=== PATIENT | male | born 1955 | race Caucasian/White ===

== ENCOUNTER → 2018-07-27 | Outpatient (CLI) | payer OTHER ==
[~2018-07-27] MED LIST: ALBU1.25 INH; ALLO300T PO; ASPI-496 PO; ATOR10TA9 PO; CHOL10002 PO; COLC1TAB PO; FEXO180T72 PO; FLUT16SP2 NS; FLUT1DIS3 INH; IBUP100T9; IBUP200T49 PO; INDO50CA5 PO; MONT10TA9 PO; MULT-6 PO; QUER1POW
== END | disposition home or self-care (01) ==
LOC: CFH 06:50
PROVIDERS: ATTEND Internal Medicine Cardiovascular Disease
DX: I35.8 Other nonrheumatic aortic valve disorders (principal); I25.10 Atherosclerotic heart disease of native coronary artery without angina pectoris; E78.5 Hyperlipidemia, unspecified
CPT/HCPCS: 78452; 93017; 93306; A9502

== ENCOUNTER 2019-03-24 10:21 | Emergency (ER) | payer OTHER ==
[~2019-03-24] VITALS: Ht 182.9 cm; Wt 100.0 kg
[2019-03-24 10:23] VITALS: BP 150/101
== END 2019-03-24 12:28 | disposition home or self-care (01) ==
LOC: ED 10:59
DX: S29.012A Strain of muscle and tendon of back wall of thorax, initial encounter (principal); S20.211A Contusion of right front wall of thorax, initial encounter; J45.909 Unspecified asthma, uncomplicated; V49.49XA Driver injured in collision with other motor vehicles in traffic accident, initial encounter; Y93.89 Activity, other specified; Y92.410 Unspecified street and highway as the place of occurrence of the external cause; Y99.8 Other external cause status
CPT/HCPCS: 71120; 72072; 93005; 99283

== ENCOUNTER 2019-11-28 13:46 | Emergency (ER) | payer MEDICARE, OTHER ==
[~2019-11-28] VITALS: Ht 185.4 cm; Wt 95.9 kg
[~2019-11-28 13:46] MED LIST changes: +INDO50CA15 PO; -INDO50CA5 PO
[2019-11-28] MEDS ORDERED: DIPH,PERTUSS(ACELL),TET VAC/PF 0.5 ML IM-VACC ONE ×2 (14:30→15:08)
[2019-11-28] MEDS ORDERED: CEPHALEXIN 500 MG CAPSULE PO ONE (14:30)
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
[2019-11-28 14:32] LABS: BASOPHILS # (AUTO) 0.03 x10^3/uL (0-0.1); BASOPHILS % (AUTO) 0 % (0-1); EOSINOPHILS # (AUTO) 0.07 x10^3/uL (0-0.4); EOSINOPHILS % (AUTO) 1 % (1-7); LYMPHOCYTES % (AUTO) 13 % (22-44); MD NO; MEAN CORPUSCULAR HEMOGLOBIN 32.2 pg (27.5-34.5); MEAN CORPUSCULAR HGB CONC 33.5 g/dL (33.2-36.2); MEAN CORPUSCULAR VOLUME 96.1 fL (81-97); MEAN PLATELET VOLUME 6.4 fL (7.4-10.4); MONOCYTES % (AUTO) 5 % (2-9); NEUTROPHILS # (AUTO) 7.91 x10^3/uL (1.8-6.8); NEUTROPHILS % (AUTO) 81 % (42-75); PLATELET COUNT 425 x10^3/uL (130-400); RED BLOOD COUNT 3.86 x10^6/uL (4.38-5.82)
[2019-11-28] MEDS ORDERED: NEOSPORIN OINT. PKT 1 PACKET ONE (14:38)
[2019-11-28 14:44] LABS: ALBUMIN 3.6 g/dL (3.4-5.0); ANION GAP 6 mmol/L (5-15); CALCIUM 9.2 mg/dL (8.5-10.1); CHLORIDE 106 mmol/L (98-107)
[2019-11-28 14:48] LABS: ALANINE AMINOTRANSFERASE 139 U/L (12-78); ALKALINE PHOSPHATASE 81 U/L (45-117); BILIRUBIN,TOTAL 0.6 mg/dL (0.2-1.0); CREATININE 0.89 mg/dL (0.7-1.3); TOTAL PROTEIN 7.3 g/dL (6.4-8.2)
[2019-11-28 14:49] LABS: SALICYLATE LEVEL < 1.7 mg/dL (2.8-20.0)
[2019-11-28 14:50] LABS: CULTURE INDICATED? NO; MICROSCOPIC NOT IND
--- NOTE | 2019-11-28 14:50 | NUR ---
Called and requested hospital bed from housekeeping. Food tray provided to pt. Pt apprecaitive.
[2019-11-28 14:56] LABS: AMPHETAMINE SCREEN, URINE Negative (Negative); BARBITURATE SCREEN, URINE Negative (Negative); BENZODIAZEPINE SCREEN, URINE Negative (Negative); CANNABINOID SCREEN, URINE Negative (Negative); COCAINE SCREEN, URINE Negative (Negative); METHADONE SCREEN, URINE Negative (Negative); OPIATE SCREEN, URINE Negative (Negative)
[2019-11-28] MEDS ORDERED: CEPHALEXIN 500 MG CAPSULE ONE (15:08)
--- NOTE | 2019-11-28 15:18 | NUR ---
Provided pt medication per EMAR. Pt appreciative. No needs expressed at this time. Sitter near doorway in direct line of sight for observation.
--- NOTE | 2019-11-28 16:25 | NUR ---
THROUGHPUT: TAYO ([place]) FAXED PACKET TO [facility]
--- NOTE | 2019-11-28 16:27 | NUR ---
Pt provided hospital bed. Pt appreciative. Pt provided water per request. Pt requesting shower. Pt aware when appropriate staffing is available to take him to shower he will get a shower. Pt stated verbal understanding. No other needs requested.
--- NOTE | 2019-11-28 18:33 | NUR ---
LATE NOTE ENTRY FOR 1714: service worker offered to take pt to shower. Pt "changed his mind". Pt resting on hospital bed watching TV. No needs expressed at this time. Sitter in direct line of sight for observation.
--- NOTE | 2019-11-28 18:33 | NUR ---
Pt resting on hospital bed watching TV. No needs expressed at this time. Sitter in direct line of sight for observation.
--- NOTE | 2019-11-28 18:47 | NUR ---
Provided bedside report to RAFIQ Almeida. All questions answered. RAFIQ Almeida to assume care of pt at this time. No needs requested by pt at this time. Sitter remains within in line of sight from doorway.
--- NOTE | 2019-11-28 18:49 | NUR ---
Pt requesting more food. Ordered stat food tray from diet office.
--- NOTE | 2019-11-28 19:03 | NUR ---
Provided SI tray to pt. Pt apprecaitive. No other needs expressed.
--- NOTE | 2019-11-28 19:41 | NUR ---
pt resting quietly in room. pt denies current needs. sitter in place.
--- NOTE | 2019-11-29 01:00 | NUR ---
REPORT RECEIVED FROM ROSE. RE-ASSUMED CARE OF PT AT THIS TIME.
--- NOTE | 2019-11-29 02:13 | NUR ---
MEAL TRAY ORDERED
--- NOTE | 2019-11-29 04:25 | NUR ---
PT HAS BEEN INTERMITTENTLY WALKING AROUND THE ROOM AND SPEAKING TO HIMSELF. PT GIVEN CRACKERS PER REQUEST. SITTER REMAINS IN PLACE.
--- NOTE | 2019-11-29 04:40 | NUR ---
PT IN HALLWAY STATING "I'LL BE RIGHT BACK I'M GONNA GO GET COFFEE". PT REDIRECTED BACK INTO ROOM AND INFORMED BEVERAGES WILL BE PROVIDED WITH BREAKFAST. PT AGREEABLE.
--- NOTE | 2019-11-29 04:57 | NUR ---
PT GIVEN MULTIPLE CUPS OF WATER PER REQUEST.
--- NOTE | 2019-11-29 05:03 | NUR ---
NO CONTINUED ABX ORDERED FOR PTS WOUND. WOUND WAS VISUALIZED AND FOUND TO BE PURULENT. ON DUTY MD INFORMED. MEDS ORDERED. MD WILL ASSESS WOUND WHEN HE IS AVAILABLE.
[2019-11-29] MEDS ORDERED: CEPHALEXIN 500 MG CAPSULE ONE ×2 (05:05→12:03)
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
[2019-11-29] MEDS ORDERED: CEPHALEXIN 500 MG CAPSULE PO ONE (06:00)
[2019-11-29] MEDS ORDERED: CEPHALEXIN 500 MG CAPSULE PO SCH ×2 (06:00→12:15)
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
[2019-11-29] MEDS ORDERED: ZIPRASIDONE 20 MG INJ IM ONE ×2 (06:34→07:00)
--- NOTE | 2019-11-29 06:35 | NUR ---
PT IN ROOM SPEAKING IN A HIGH PITCHED VOICE, NON SENSICAL. UNCOOPERATIVE.
--- NOTE | 2019-11-29 06:44 | NUR ---
TECH AT BEDSIDE FOR WOUND CARE. PT CONTINUES TO SPEAK IN HIGH PITCHED NONSENSICAL TALK.
--- NOTE | 2019-11-29 06:48 | NUR ---
PT NOW IN 2 POINT RESTRAINTS.
--- NOTE | 2019-11-29 06:58 | NUR ---
RECEIVED REPORT FROM ARABELLA. PT UPRIGHT ON HOSPITAL BED CALMLY WATCHING TV, 2-PT RESTRAINTS IN PLACE, COOPERATIVE & RESPONDS APPROP TO STAFF, NAD, COMFORT MEASURES PROVIDED, PT REMAINS IN SAFE ENVIRONMENT, SITTER IN VIEW.
--- NOTE | 2019-11-29 07:40 | NUR ---
PT HITTING WALL WITH FREE HAND STATING "I WANT BREAKFAST." PT EASILY REDIRECTABLE & ASSURED BREAKFAST WAS ON THE WAY, BED ALSO MOVED FURTHER AWAY FROM THE WALL.
--- NOTE | 2019-11-29 08:00 | NUR ---
PT REMAINS UPRIGHT ON GURNEY AWAKE & COOPERATIVE, RESPONDS APPROP TO STAFF, VERBALIZED UNDERSTANDING OF CRITERIA OF RESTRAINT REMOVAL SO 2-PTS WERE DC'D, NAD, COMFORT MEASURES PROVIDED, PT REMAINS IN SAFE ENVIRONMENT, SITTER IN VIEW.
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
--- NOTE | 2019-11-29 08:15 | NUR ---
REPORT GIVEN TO EMILY
--- NOTE | 2019-11-29 08:30 | NUR ---
PT SITTING IN BED WITH EYES CLOSED. ARROUSES WHEN RN ENTERS ROOM. PT COOPERATIVE WITH RN OBTAINING VS AND ASSESSMENT. PT C/O SHEA. DENIES SI/HI AT THIS TIME. BREAKFAST TRAY PROVIDED AND SET UP, COFFEE PROVIDED REQUESTED. PLAN FOR SHOWER AFTER BREAKFAST DISCUSSED.
--- NOTE | 2019-11-29 10:12 | NUR ---
9025 - 0653 PT ATE 100% OF BREAKFAST. PT AMBULATED WITH SITTER TO SHOWER ROOM. PT COMPLETED SHOWER INDEPENDENTLY, RTD TO ROOM W/O INCIDENT. PTS BROTHERBRANDEN HERE TO VISIT WITH PT. SITTER AT DOORWAY.
--- NOTE | 2019-11-29 12:30 | NUR ---
LUNCH TRAY PROVIDED TO PT. NO OTHER NEEDS AT THIS TIME.
--- NOTE | 2019-11-29 13:15 | NUR ---
SEISMOGRAPH HELPER TALKING WITH PT IN ROOM NOW.
[2019-11-29] MEDS ORDERED: NEOSPORIN OINT. PKT 1 PACKET ONE ×2 (13:52→15:10)
--- NOTE | 2019-11-29 14:00 | NUR ---
L AC WOUND DRESSED WITH ABX OINTMENT, XEROFORM, STERILE GAUZE, AND KERLIX WRAP PER ERP. PT STATES HE THINKS WOUND IS IMPROVING. WOUND CARE INSTRUCTIONS & INFECTION PREVENTION RV'WD WITH PT, HE VERBALIZES UNDERSTANDING. EXTRA SUPPLIES PROVIDED.
[2019-11-29 14:45] VITALS: BP 121/78
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
== END 2019-11-29 15:16 | disposition home or self-care (01) ==
LOC: ED 16:21
DX: F32.9 Major depressive disorder, single episode, unspecified (principal); F43.0 Acute stress reaction; R45.6 Violent behavior
CPT/HCPCS: 36415; 73070; 80053; 80307; 81003; 85025; 90471; 90715; 93005; 96372; 99284; J3486

== ENCOUNTER 2019-11-30 14:46 | Emergency (ER) | payer MEDICARE ==
[~2019-11-30] VITALS: Ht 182.9 cm; Wt 93.0 kg
[~2019-11-30 14:46] MED LIST changes: +MONT10TA11 PO; -MONT10TA9 PO
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
--- NOTE | 2019-11-30 16:05 | NUR ---
EDMD AT BEDSIDE TO EVALUATE AT THIS TIME.
--- NOTE | 2019-11-30 16:28 | NUR ---
URINAL AT BEDSIDE. PT AWARE OF URINE SAMPLE AT THIS TIME.
--- NOTE | 2019-11-30 16:42 | NUR ---
PT'S BELONGINGS PUT INTO 2 BAGS AND PUT INTO THE LOCKER AT THIS TIME.
--- NOTE | 2019-11-30 16:47 | NUR ---
LISA REQUESTING AT THIS TIME.
--- NOTE | 2019-11-30 16:47 | NUR ---
PT PROVIDED URINE SAMPLE AT THIS TIME. UA SENT.
[2019-11-30 16:48] LABS: BASOPHILS # (AUTO) 0.02 x10^3/uL (0-0.1); BASOPHILS % (AUTO) 0 % (0-1); EOSINOPHILS # (AUTO) 0.05 x10^3/uL (0-0.4); EOSINOPHILS % (AUTO) 1 % (1-7); LYMPHOCYTES # (AUTO) 1.16 x10^3/uL (1-3.4); LYMPHOCYTES % (AUTO) 18 % (22-44); MD NO; MEAN CORPUSCULAR HEMOGLOBIN 31.9 pg (27.5-34.5); MEAN CORPUSCULAR HGB CONC 33.3 g/dL (33.2-36.2); MEAN PLATELET VOLUME 6.4 fL (7.4-10.4); MONOCYTES # (AUTO) 0.38 x10^3/uL (0.2-0.8); MONOCYTES % (AUTO) 6 % (2-9); NEUTROPHILS # (AUTO) 5.02 x10^3/uL (1.8-6.8); NEUTROPHILS % (AUTO) 76 % (42-75); PLATELET COUNT 361 x10^3/uL (130-400); RED BLOOD COUNT 3.62 x10^6/uL (4.38-5.82); RED CELL DISTRIBUTION WIDTH 13.7 % (9.4-14.8)
[2019-11-30 16:57] LABS: ALANINE AMINOTRANSFERASE 96 U/L (12-78); ALBUMIN 3.1 g/dL (3.4-5.0); ANION GAP 8 mmol/L (5-15); CALCIUM 9.3 mg/dL (8.5-10.1); CHLORIDE 109 mmol/L (98-107); CREATININE 0.74 mg/dL (0.7-1.3)
[2019-11-30 17:00] LABS: SALICYLATE LEVEL < 1.7 mg/dL (2.8-20.0)
[2019-11-30 17:03] LABS: ALKALINE PHOSPHATASE 72 U/L (45-117); BILIRUBIN,TOTAL 0.4 mg/dL (0.2-1.0); TOTAL PROTEIN 6.8 g/dL (6.4-8.2)
--- NOTE | 2019-11-30 17:05 | NUR ---
EDMD PLACED PT ON LEGAL HOLD. PT SCREAMING. EDMD NOTIFIED.
[2019-11-30 17:08] LABS: AMPHETAMINE SCREEN, URINE Negative (Negative); BARBITURATE SCREEN, URINE Negative (Negative); BENZODIAZEPINE SCREEN, URINE Negative (Negative); CANNABINOID SCREEN, URINE Negative (Negative); COCAINE SCREEN, URINE Negative (Negative); METHADONE SCREEN, URINE Negative (Negative); OPIATE SCREEN, URINE Negative (Negative)
[2019-11-30] MEDS ORDERED: ZIPRASIDONE 20 MG INJ IM ONE ×2 (17:10→17:30)
--- NOTE | 2019-11-30 17:22 | NUR ---
PT MEDICATED PER EMAR. PT TOLERATED WELL.
--- NOTE | 2019-11-30 17:32 | NUR ---
SITTER MONITORING PT FROM [facility] FOR SAFETY. ROOM SECURE.
--- NOTE | 2019-11-30 17:39 | NUR ---
DIET TRAY ORDERED AT THIS TIME.
--- NOTE | 2019-11-30 18:05 | NUR ---
PT SLEEPING. RESPS EVEN AND UNLABORED. SITTER MONITORING FROM HALLWAY FOR SAFETY. ROOM REMAINS SECURE.
--- NOTE | 2019-11-30 18:53 | NUR ---
REPORT GIVEN TO SUDEEP CONROY.
--- NOTE | 2019-11-30 18:58 | NUR ---
BREAK RN: PT SLEEPING RESP EVEN AND UNLABORED.
--- NOTE | 2019-11-30 20:12 | NUR ---
RECEIVED REPORT FROM SUDEEP CONROY. ASSUMING CARE. PT RESTING COMFORTABLY ON GURNEY. MIGUELINA. PT IN DIRECT SIGHT OF SITTER.
[2019-11-30] MEDS ORDERED: QUETIAPINE 100MG TABLET PO SCH (21:00)
--- NOTE | 2019-11-30 21:05 | NUR ---
PT REFUSED HS MEDS. PT ENCOURAGED AND EDUCATED ABOUT MEDICATION,
--- NOTE | 2019-11-30 21:25 | NUR ---
PT RESTING COMFORTABLY ON GURNEY. MIGUELINA. PT IN DIRECT SIGHT OF SITTER.
--- NOTE | 2019-11-30 22:37 | NUR ---
PT RESTING COMFORTABLY ON GURNEY. MIGUELINA. PT IN DIRECT SIGHT OF SITTER.
--- NOTE | 2019-11-30 23:37 | NUR ---
referral packet faxed [phone]
--- NOTE | 2019-11-30 23:39 | NUR ---
referral packet faxed to [facility]henri [facility]
--- NOTE | 2019-12-01 00:11 | NUR ---
RESTING QUIETLY, SITTER OUTSIDE ROOM FOR PT SAFETY
--- NOTE | 2019-12-01 00:51 | NUR ---
PT SITTING UP ON GURNEY, PROVIDED PT WITH SNACK PER HIS REQUEST, ROOM REMAINS SECURED, PT DENIES SI/HI THOUGHTS, SITTER AT DOORWAY FOR CONTINOUS MONITORING
--- NOTE | 2019-12-01 01:01 | NUR ---
HOSPITAL BED ORDERED. PROVIDED PT WITH SNACK, DENIES FURTHER NEEDS AT THSI TIME, SITTER AT DOORWAY FOR CONTINOUS MONITORING
--- NOTE | 2019-12-01 01:20 | NUR ---
alla from [facility] on telephone, updated on pt status, vs and medications
--- NOTE | 2019-12-01 01:35 | NUR ---
alla from [facility] called to declined Pt per doctor
--- NOTE | 2019-12-01 02:28 | NUR ---
PROVIDED PT WITH HOSPITAL BED, PT SITTING UP IN BED, NAD, DENIES FURTHER NEEDS, SITTER AT DOORWAY FOR CONTINOUS MONITORING
--- NOTE | 2019-12-01 03:24 | NUR ---
PT RESTING IN BED WITH EYES CLOSED, EQUAL CHEST RISE/FALL OBSERVED, SITTER AT DOORWAY FOR CONTINOUS MONITORING
--- NOTE | 2019-12-01 03:56 | NUR ---
BREAKFAST TRAY ORDERED.
--- NOTE | 2019-12-01 04:26 | NUR ---
PT RESTING WITH EYES CLOSED, NAD, REPOSITIONED SELF ON GURNEY, EQUAL CHEST RISE /FALL OBSERVED. SITTER AT DOORWAY FOR CONTINOUS MONITORING
--- NOTE | 2019-12-01 05:32 | NUR ---
PT RESTING IN BED WATCHING TV, NAD, DENIES NEEDS, SITTER AT DOORWAY FOR CONTINOUS MONITORING
--- NOTE | 2019-12-01 06:39 | NUR ---
PT SITTING UP IN BED WATCHING TV, PROVIDED PT WITH COFFEE PER HIS REQUEST, DENIES FURTHER NEEDS, NAD, SITTER AT DOORWAY FOR CONTINOUS MONITORING
--- NOTE | 2019-12-01 07:09 | NUR ---
report given to heather poole
--- NOTE | 2019-12-01 07:10 | NUR ---
REPORT FROM URIEL RN RECIEVED, PT RESTING ON HOSPITAL BED, AWAKE AND CALM. SI PRECAUTIONS OBSERVED. NAD NOTED
--- NOTE | 2019-12-01 08:01 | NUR ---
PT PROVIDED WITH BREAKFAST TRAY. PT COOPERATIVE WITH CARE AT THIS TIME, BUDDYS
--- NOTE | 2019-12-01 08:46 | NUR ---
PT VOIDING INTO STYROFOAM CUPS. CUPS DISPOSED OF, PT GIVEN URINAL
--- NOTE | 2019-12-01 10:36 | NUR ---
PT WITH BROTHER VISITING PER HIS REQUEST, ALL VISITOR BELONGINGS PLACED OUTSIDE OF . PT IS CALM AND ENJOYING VISIT. PT GIVEN COFFEE PER REQUEST. NAD NOTED, NO OTHER NEEDS AT THIS TIME
--- NOTE | 2019-12-01 11:40 | NUR ---
PT CONTINUES TO REST COMFORTABLY ON HOSPITAL BED, SI PRECAUTIONS REMAIN IN PLACE. LUNCH MEAL ORDERED
--- NOTE | 2019-12-01 13:27 | NUR ---
MAILE TAYLOR IN TO [facility]O PT
[2019-12-01] MEDS ORDERED: ARIPIPRAZOLE 10 MG TABLET ONE (13:40)
[2019-12-01] MEDS ORDERED: ARIPIPRAZOLE 10 MG TABLET PO SCH (14:00)
--- NOTE | 2019-12-01 14:15 | NUR ---
THROUGHPUT: JAXON CONROY FROM [facility] TO SPEAK WITH MD TO DETERMINE IF THEY WILL ACCEPT PT- WILL CALL BACK. PRIMARY RN & CLAUDIA (PSYCH FIBER ANALYST) AWARE.
--- NOTE | 2019-12-01 14:36 | NUR ---
PT MEDICATED PER MAR WITH NEW ORDERED MEDICATION
--- NOTE | 2019-12-01 17:02 | NUR ---
PT GIVEN MEAL TRAY. NAD NOTED
--- NOTE | 2019-12-01 17:35 | NUR ---
THROUGHPUT: LEFT MESSAGE WITH PRE[facility] TO CALL BACK WITH UPDATE ON ACCEPTING PT.
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
[2019-12-01 20:37] VITALS: BP 130/86
--- NOTE | 2019-12-01 20:38 | NUR ---
PT RESTING ON HOSPITAL BED. PT PROVIDED DECAF COFFEE. PT ASKING FOR FOOD, TOLD THAT KITCHEN IS CLOSED UNTIL MORNING. NO FOOD WILL BE PROVIDED UNTIL THEN. SITTER AT DOORWAY FOR FREQUENT CHECKS.
--- NOTE | 2019-12-01 21:00 | NUR ---
PT RESTING ON HOSPITAL BED EYES CLOSED, RESPIRATIONS EVEN AND UNLABORED. SITTER AT DOORWAY FOR FREQUENT CHECKS.
[2019-12-01] MEDS ORDERED: NEOSPORIN OINT. PKT 1 PACKET ONE (21:07)
[2019-12-01] MEDS ORDERED: CEPHALEXIN 500 MG CAPSULE ONE (21:29)
[2019-12-01] MEDS ORDERED: CEPHALEXIN 500 MG CAPSULE PO SCH (21:30)
--- NOTE | 2019-12-01 22:00 | NUR ---
PT RESTING ON HOSPITAL BED EYES CLOSED, RESPIRATIONS EVEN AND UNLABORED. SITTER AT DOORWAY FOR FREQUENT CHECKS.
--- NOTE | 2019-12-01 23:39 | NUR ---
PT RESTING ON HOSPITAL BED EYES CLOSED, RESPIRATIONS EVEN AND UNLABORED. SITTER AT DOORWAY FOR FREQUENT CHECKS.
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
--- NOTE | 2019-12-02 01:37 | NUR ---
TASK RN: 3E ACCEPTING PT.
[2019-12-07] MEDS ORDERED: CARB200T4 PO (14:19)
[2019-12-07] MEDS ORDERED: LORA-247 PO (14:19)
[2019-12-07] MEDS ORDERED: OLAN5TAB9 PO (14:19)
== END 2019-12-02 02:13 ==
LOC: ED 15:21
DX: F29 Unspecified psychosis not due to a substance or known physiological condition (principal); M79.602 Pain in left arm; F32.9 Major depressive disorder, single episode, unspecified; J45.909 Unspecified asthma, uncomplicated; F23 Brief psychotic disorder
CPT/HCPCS: 36415; 80053; 80307; 85025; 96372; 99285; J3486